=== PATIENT | male | born 1950 | race Caucasian/White ===

== ENCOUNTER 2016-08-26 08:44 | Day surgery (SDC) | payer BC ==
[2016-08-12 10:05] VITALS: BMI 29.0
--- NOTE | 2016-08-25 20:13 | HISTORY & PHYSICAL EXAMINATION ---
DATE OF ADMISSION: 08/26/2016 CHIEF COMPLAINT: Chronic right shoulder pain. HISTORY OF PRESENT ILLNESS: This is a 66-year-old male patient of Dr. Ward complaining of chronic right shoulder pain, longstanding, now progressively getting worse. The patient has been diagnosed with impingement, AC arthritis, rotator cuff tendinopathy and biceps tendinopathy. He has failed conservative treatment and wishes to proceed with right shoulder arthroscopic subacromial decompression, distal clavicle excision, rotator cuff debridement versus repair and possible biceps tenodesis. PAST MEDICAL HISTORY: Hypertension, hypercholesterolemia, diabetes mellitus and skin cancer. SOCIAL HISTORY: Nonsmoker, nondrinker. PAST SURGICAL HISTORY: Left shoulder, left knee, cholecystectomy, valve replacement. FAMILY HISTORY: Noncontributory. REVIEW OF SYSTEMS: The patient complains of chronic right shoulder pain. Otherwise denies any shortness of breath, chest pain, nausea, vomiting or any other joint complaints. MEDICATIONS: Aspirin 81 mg daily, atorvastatin 40 mg daily, fish oil 1000 mg daily, lisinopril 10 mg daily, metformin 500 mg b.i.d., Tradjenta 5 mg daily and Coumadin managed by Coumadin clinic. ALLERGIES: No known drug allergies. PHYSICAL EXAMINATION: GENERAL: Well-developed, well-nourished 66-year-old male patient of Dr. Ward. He is alert, oriented x3 and pleasant. HEENT: Normocephalic, atraumatic. Extraocular motions are intact. Pupils are equal and reactive to light. HEART: Regular rate and rhythm. No murmurs are appreciated. LUNGS: Clear. ABDOMEN: Soft and nontender, bowel sounds are present. EXTREMITIES: Right shoulder reveals AC joint tenderness. He has positive impingement maneuvering. He has decreased strength with resistive strength testing. He has a positive biceps exam. DIAGNOSES: Right shoulder impingement, acromioclavicular arthritis, biceps tendinopathy. He also has a history of hypertension, hypercholesterolemia, diabetes mellitus and skin cancer. PLAN: The patient was advised of his diagnoses. Indications, risks, benefits, and postop course have all been reviewed. The patient wishes to proceed with a right shoulder arthroscopic subacromial decompression, distal clavicle excision, debridement versus rotator cuff repair and possible biceps tenodesis. Necessary consent forms, preoperative testing and clearances have been obtained. MEME
[~2016-08-26] VITALS: Ht 180.3 cm; Wt 95.5 kg
[~2016-08-26 08:44] MED LIST: ASPI81TA28 PO; ATOR-24 PO; ATROPINE SULFATE 0.1 MG/ML 5ML SYR IV PRN; CEFAZOLIN 2000 MG/60 ML D5W IV SCH; CMD75 PO; EpHEDrine SULFATE INJ 50 MG/ML AMP IV PRN; FENTANYL CITRATE INJ 50 MCG/1 ML 2 ML VIAL IV PRN; FENTANYL CITRATE INJ 50 MCG/1 ML 2 ML VIAL ONE; GLC/500 PO; HYDROmorphone INJ 1 MG/ML SYR IV PRN; LACTATED RINGER'S 1000ML 1,000 ML IV SCH; LINA1TAB PO; LISI10TA PO; METO25TA3 PO; MIDAZOLAM HCL 1 MG/ML 2ML VIAL ONE; MULT-506 PO; OMEG10007 PO; ONDANSETRON INJ 2 MG/ML 2 ML VIAL IV PRN; ROPIVACAINE 0.5% 5 MG/ML 30 ML VIAL ONE; VITACAP26 PO
[2016-08-26 09:37] LABS: INR 1.1 (0.9-1.1); PARTIAL THROMBOPLASTIN RATIO 1.1; PROTHROMBIN TIME (PATIENT) 11.5 SECONDS (9.0-12.0)
[2016-08-26 09:42] VITALS: BP 139/84; PULSE 74; TEMP 37; O2SAT 96; Ht 180.3 cm; Wt 95.5 kg
--- NOTE | 2016-08-26 10:59 | History & Physical Bridge Note ---
H&P Re-Evaluation Bridge Note: I have examined the patient, reviewed the History & Physical and in the interval since the performance of the History & Physical I have noted the following changes of clinical significance: No changes noted
[2016-08-26] MEDS ORDERED: ROCURONIUM BROMIDE 10 MG/ML 5 ML VIAL ONE (11:53)
[2016-08-26] MEDS ORDERED: LARYING-O-JET KIT (LTA) EXT ONE ×2 (11:53)
[2016-08-26] MEDS ORDERED: LIDOCAINE HCL 2% 2 ML VIAL (20MG/ML) ONE (11:53)
[2016-08-26] MEDS ORDERED: PROPOFOL IV EMULSION 10 MG/ML 20 ML VIAL IV ONE (11:53)
[2016-08-26] MEDS ORDERED: PHENYLEPHRINE 100MCG/ML 5ML SYR ONE (12:03)
[2016-08-26] MEDS ORDERED: NEOSTIGMINE METHYLSULFATE 5 MG/5 ML SYR ONE (12:03)
[2016-08-26] MEDS ORDERED: GLYCOPYRROLATE INJ 0.2 MG/ML VIAL ONE (12:03)
--- NOTE | 2016-08-26 12:50 | [facility] Operative Report ---
Operative Report Operative Date Aug 26, 2016. Pre-Operative Diagnosis Right Shoulder: Impingement, Acromioclavicular Arthritis, Biceps tendinopathy Post-Operative Diagnosis RIGHT SHOULDER PARTIAL TEAR ROTATOR CUFF SYNOVITIS ADHESIVE CAPSULITIS AND Procedure(s) Performed right arthroscopic decompression and distal clavicle excision and debridement and PEDRO PABLO Surgeon Dr. Dawkins Flanging Roll Operator Surgeon(s) MARTINA Wright Findings ABOVE PARTIAL ARTICULAR ROTATOR CUFF TEAR and adhesive capsulitis Specimens none per surgeon Drains NONE Anesthesia GENERAL AND REGIONAL Complication(s) None Disposition Recovery Room / PACU Indications PAIN AND STIFFNESS AND WEAKNESS I attest to the content of the Intraoperative Record and any orders documented therein. Any exceptions are noted below.
[2016-08-26] MEDS ORDERED: SODIUM CHLORIDE 0.9% 1000ML 1,000 ML IV SCH (12:55)
[2016-08-26] MEDS ORDERED: OXYC-57 PO (12:58)
[2016-08-26] MEDS ORDERED: OXYCODONE/ACETAMINOPHEN 5-325 TAB PO PRN ×2 (13:00)
--- NOTE | 2016-08-26 13:06 | Discharge Instructions ---
Discharge Instructions Admission Reason for Admission: Right Shoulder Impingement, Rotator Cuff Tear, Acr Discharge Discharge Diagnosis / Problem: debrid partial RC tear, decompression, distal clavicle excision Discharge Goals Goal(s): Improve function Activity Recommendations Activity Limitations: as noted below . Instructions / Follow-Up Instructions / Follow-Up See Post Op Instruction Sheet printed in Chart Begin PT tomorrow, 08/27/15 if possible, Tuesday at the latest Pain meds as ordered. Follow up with Dr. Dawkins's office 10-12 days as schedules, call [phone] to confirm appt. Current Hospital Diet Patient's current hospital diet: Discharge Diet Recommended Diet: Regular Diet Procedures Procedures Performed: Right Shoulder: Arthroscopy, Subacromial Decompression, Distal Clavicle Excision, Debridement, Partial Tear Rotator Cuff and Synovium, Manipulation under Anesthesia Pending Studies Studies pending at discharge: no Medical Emergencies . Who to Call and When: Medical Emergencies: If at any time you feel your situation is an emergency, please call 911 immediately. . Non-Emergent Contact Non-Emergency issues call your: Primary Care Provider . "Provider Documentation" section prepared by Christ Noe. VTE Core Measure Inpt VTE Proph given/why not?: Treatment not indicated
[2016-08-26] MEDS ORDERED: FENTANYL CITRATE INJ 50 MCG/1 ML 2 ML VIAL ONE (13:32)
[2016-08-26] MEDS ORDERED: NURSING VERBAL MED ORDER ONE (13:45)
[2016-08-26 14:00] VITALS: BP 148/79; PULSE 79; TEMP 36.6; O2SAT 94
--- NOTE | 2016-08-26 14:11 | Anesthesiology Progress Note ---
Anesthesia Post Op Note Date & Time Aug 26, 2016 at 14:10 Vital Signs Pain Intensity: 4 Vital Signs Past 12 Hours Date Time Temp Pulse Resp B/P Pulse Ox O2 Delivery O2 Flow Rate FiO2 08/26/16 13:48 135/74 08/26/16 13:47 36.4 08/26/16 13:46 73 15 99 08/26/16 13:46 72 15 08/26/16 13:43 138/79 08/26/16 13:41 71 16 08/26/16 13:41 71 16 99 08/26/16 13:38 149/73 08/26/16 13:36 73 15 08/26/16 13:36 77 15 99 08/26/16 13:35 74 16 08/26/16 13:35 68 16 99 08/26/16 13:33 134/78 08/26/16 13:30 61 19 08/26/16 13:30 72 19 95 08/26/16 13:28 126/71 08/26/16 13:25 68 16 93 08/26/16 13:25 70 16 08/26/16 13:23 132/69 08/26/16 13:20 67 16 100 08/26/16 13:20 65 16 08/26/16 13:19 65 16 100 08/26/16 13:19 65 16 08/26/16 13:18 143/75 08/26/16 13:14 70 16 100 08/26/16 13:14 66 16 08/26/16 13:13 144/76 08/26/16 13:09 66 16 08/26/16 13:09 66 16 100 08/26/16 13:08 140/79 08/26/16 13:04 63 12 08/26/16 13:04 63 12 100 08/26/16 13:03 138/85 08/26/16 12:59 36.4 67 20 135/79 100 Mask 10 08/26/16 12:59 65 15 100 08/26/16 12:59 65 15 08/26/16 09:42 37 74 18 139/84 96 Room Air Notes Mental Status: alert / awake / arousable, participated in evaluation Pt Amnestic to Procedure: Yes Nausea / Vomiting: adequately controlled Pain: adequately controlled Airway Patency, RR, SpO2: stable & adequate BP & HR: stable & adequate Hydration State: stable & adequate Anesthetic Complications: no major complications apparent
[2016-08-26 14:30] VITALS: BP 127/74; PULSE 77; TEMP 36.5; O2SAT 94
[2016-08-26 15:00] VITALS: BP 135/71; PULSE 82; TEMP 36.7; O2SAT 94
[2016-08-26 15:30] VITALS: BP 135/71; PULSE 79; TEMP 36.6; O2SAT 96
--- NOTE | 2016-08-27 01:39 | OPERATIVE REPORT ---
DATE OF OPERATION: 08/26/2016 INDICATION FOR PROCEDURE: The patient is a 66-year-old male with chronic right shoulder pain and stiffness. He has failed to improve over time. His x-rays and MRI demonstrate that he has a very thick type 2 acromion process. He has hypertrophic AC joint causing impingement. He has some rotator cuff tendinopathy of the anterior supraspinatus with partial tearing of the rotator cuff. The tear is adjacent to the biceps tendon but there is no clear biceps pathology. The patient has had previous rotator cuff tear which required repair and decompression in his opposite shoulder, he did well with that procedure and wants to proceed with right shoulder surgery at this time. PREOPERATIVE DIAGNOSES: Right shoulder rotator cuff tendinopathy, partial tear rotator cuff impingement, and acromioclavicular joint arthritis. POSTOPERATIVE DIAGNOSES: Same including adhesive capsulitis and synovitis. PROCEDURE: Right shoulder arthroscopic subacromial decompression, distal clavicle excision, debridement of partial tear rotator cuff and synovium, and manipulation under anesthesia. SURGEON: Dr. Dawkins. UTILIZATION MANAGEMENT MANAGER: Christ Noe PA-C. ANESTHESIA: Regional block, general. OPERATIVE PROCEDURE: The patient was taken to the operating room, anesthetized under regional block and general anesthetic. Examined his shoulder under anesthesia and it appeared that he had some moderate adhesive capsulitis. He did have about 150 degrees of forward elevation and his external rotation was only to about 70, his internal was only to about 70, his abduction was also to about 140-150 degrees. I felt that he had some level of adhesive capsulitis. I went ahead and manipulated his arm, stabilizing his scapula to 180 degrees of forward elevation, 180 degrees of abduction, 90 degrees of external rotation with the arm at the 90-degree abducted position and also 90 degrees of internal rotation, cross arm adduction as well. Did have some audible release and he had full range of motion of his shoulder at this time. His shoulder was sterilely prepped and draped using ChloraPrep. Arthroscopy was initiated with posterior arthroscopy portal in the soft spot, anterior portal in the rotator interval, and lateral portal in the subacromial space. In the glenohumeral joint, he had good articular surface, his labrum was intact. He did have synovitis in the rotator interval area and inferior recess. There was some micro tearing from the manipulation noted in the capsule. The biceps anchor was intact. Biceps tendon looked normal. The subscapularis tendon looked normal. Supraspinatus had tendinopathic fraying and superficial tearing. The tear was not deeper than 4 mm deep into the tendon. The supraspinatus was the only tendon involved. In the subacromial space, he had some bursitis. He had some slight scuffing of the CA ligament consistent with some impingement and he had more prominent inferior AC joint spurs causing impingement, moderate AC joint arthritis. Bursal surface of the rotator cuff was intact. In the glenohumeral joint, I did partial synovectomy and some of the synovium in the rotator interval anterior area. I debrided some of the synovium around the labrum. I debrided the rotator cuff tissue back to intact but slightly tendinopathic tissue. Then in the subacromial space, I did a thorough bursectomy, ablated the inferior aspect of the acromion with the radiofrequency ablator, released the CA ligament off the anterior acromion process, and ablated the inferior AC joint capsule, exposed 1 cm of distal clavicle. Acromioplasty was performed with a 5.5 bur, planing down the acromion to a type 1 flat shape, and the 1 cm distal clavicle was resected with a bur through lateral and anterior portal and 30- and 70-degree arthroscope to visualize resection. All debris was irrigated out of the subacromial space. The portal sites were closed with nylon sutures. Sterile dressings were applied and sling. Christ Noe PA-C, was my assistant plant controller. He functioned as assistant plant controller through the entire procedure. He assisted in positioning, prepping, draping, arm positioning, instrument management during the procedure, and performed skin closure and will participate in postop care of the patient. I attest to the content of the Intraoperative Record and any orders documented therein. Any exceptions are noted below. MEME
== END 2016-08-26 15:50 | disposition home health service (06) ==
LOC: C.ACU 08:44
PROVIDERS: ATTEND Orthopaedic Surgery Sports Medicine
DX: M75.101 Unspecified rotator cuff tear or rupture of right shoulder, not specified as traumatic (principal); M75.41 Impingement syndrome of right shoulder; M19.011 Primary osteoarthritis, right shoulder; M75.01 Adhesive capsulitis of right shoulder; M65.9 Synovitis and tenosynovitis, unspecified; I10 Essential (primary) hypertension; E78.5 Hyperlipidemia, unspecified; E11.9 Type 2 diabetes mellitus without complications; Z79.01 Long term (current) use of anticoagulants